=== PATIENT | female | born 1990 | race African-American/Black ===

== ENCOUNTER 2018-10-15 19:13 | Emergency (ER) | payer SELFPAY ==
[~2018-10-15] VITALS: Ht 157.5 cm; Wt 59.0 kg
[2018-10-15 19:34] VITALS: BP 125/83
== END 2018-10-15 23:20 | disposition left against medical advice (07) ==
LOC: ER 19:13
DX: Z53.21 Procedure and treatment not carried out due to patient leaving prior to being seen by health care provider (principal)